=== PATIENT | female | born 2000 | race Caucasian/White ===

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

== ENCOUNTER 2022-09-16 05:43 | Emergency (ER) | payer OTHER ==
[~2022-09-16] VITALS: Ht 162.5 cm; Wt 59.0 kg
[2022-09-16 08:09] VITALS: BP 106/64
== END 2022-09-16 09:04 | disposition home or self-care (01) ==
LOC: ED 05:43
DX: G43.909 Migraine, unspecified, not intractable, without status migrainosus (principal); R11.2 Nausea with vomiting, unspecified; Z91.040 Latex allergy status; Z87.891 Personal history of nicotine dependence

== ENCOUNTER 2023-05-25 20:12 | Emergency (ER) | payer OTHER ==
[~2023-05-25] VITALS: Ht 162.5 cm; Wt 63.5 kg
[2023-05-25 20:22] VITALS: BP 159/108
[2023-05-25] MEDS ORDERED: Acetaminophen/Hydrocodone 5 MG/325 MG TABLET PO ONE (20:50)
== END 2023-05-25 22:23 | disposition home or self-care (01) ==
LOC: ED 20:12
DX: S93.601A Unspecified sprain of right foot, initial encounter (principal); W22.8XXA Striking against or struck by other objects, initial encounter; Y93.89 Activity, other specified; Y92.89 Other specified places as the place of occurrence of the external cause; Y99.8 Other external cause status